=== PATIENT | male | born 1975 | race Caucasian/White ===

== ENCOUNTER 2017-09-30 15:47 | Day surgery (SDC) | payer OTHER ==
[2017-09-30] MEDS ORDERED: FENTAnyl 50 MCG/ML VIAL (17:37)
[2017-09-30] MEDS ORDERED: MIDAZOLAM 1 MG/ML 2 ML INJ ×3 (17:37→17:38)
== END 2017-09-30 18:02 | disposition home or self-care (01) ==
LOC: GIL 15:47
DX: Z12.11 Encounter for screening for malignant neoplasm of colon (principal); K64.4 Residual hemorrhoidal skin tags; K64.8 Other hemorrhoids
CPT/HCPCS: 45378

== ENCOUNTER 2019-01-01 14:34 | Emergency (ER) | payer OTHER | END 2019-01-01 17:04 | disposition home or self-care (01) | LOC: FTE 17:04 | DX: S70.11XA Contusion of right thigh, initial encounter (principal); W01.198A Fall on same level from slipping, tripping and stumbling with subsequent striking against other object, initial encounter; Y92.9 Unspecified place or not applicable | CPT/HCPCS: 73550; 93971; 99284-25 ==